=== PATIENT | male | born 1985 | race African-American/Black ===

== ENCOUNTER 2016-05-24 20:43 | Emergency (ER) | payer SELFPAY ==
[2016-05-24] MEDS ORDERED: KETOROLAC TROMETHAMINE 60 MG/2 ML VIAL ONE (21:45)
[2016-05-24] MEDS ORDERED: ONDANSETRON 4 MG ODT TAB ONE (21:45)
[2016-05-24] MEDS ORDERED: ACETAMINOPHEN 500 MG TABLET ONE (21:45)
--- NOTE | 2016-05-25 07:52 | RAD ---
HISTORY: Low back pain after fall while playing basketball. Initial encounter. COMPARISON: None Findings: AP and lateral views of the lumbar spine with AP spot film of the lumbo-sacral junction are obtained. There are 6 lumbar type vertebral bodies. The development and bony structures are normal. There is no fracture, dislocation or destructive lesion. There may be slight retrolisthesis of L6 on S1. The disk spaces and vertebral body heights are well-preserved. The sacrum and sacroiliac joints are normal. IMPRESSION: Negative lumbosacral spine. 6 lumbar type vertebral bodies.
== END 2016-05-24 23:34 | disposition home or self-care (01) ==
LOC: ED 20:43
DX: M54.5 Low back pain (principal); W03.XXXA Other fall on same level due to collision with another person, initial encounter; Y93.67 Activity, basketball; Y92.310 Basketball court as the place of occurrence of the external cause